=== PATIENT | female | born 1975 | race Caucasian/White ===

== ENCOUNTER → 2017-08-23 | Outpatient (CLI) | payer OTHER ==
[~2017-08-23] MED LIST: CHANTIX1 EACH PO; CYMBALTA20 MG PO; HYDROCODONE-AP1 EAC6 PO; LEXAPRO20 MG PO; MEDROLDOSEPACK PO; ROBAXIN 750 MG750 M1 PO; ULTRAM 50MG TAB50 MG PO; VICODIN 5-5001 EACH PO; XANAX 0.25 MG0.25 MG PO
== END ==
LOC: M.WC 00:03
DX: T81.4XXA Infection following a procedure, initial encounter (principal); F17.210 Nicotine dependence, cigarettes, uncomplicated; Y83.8 Other surgical procedures as the cause of abnormal reaction of the patient, or of later complication, without mention of misadventure at the time of the procedure

== ENCOUNTER → 2017-09-13 | Outpatient (CLI) | payer OTHER | LOC: M.WC 08:00 | DX: T81.4XXD Infection following a procedure, subsequent encounter (principal); F17.200 Nicotine dependence, unspecified, uncomplicated; Y83.8 Other surgical procedures as the cause of abnormal reaction of the patient, or of later complication, without mention of misadventure at the time of the procedure ==

== ENCOUNTER 2017-11-17 18:41 | Emergency (ER) | payer OTHER ==
[~2017-11-17] VITALS: Ht 167.6 cm; Wt 86.2 kg
[~2017-11-17 18:41] MED LIST changes: -CYMBALTA20 MG PO; -HYDROCODONE-AP1 EAC6 PO; -MEDROLDOSEPACK PO; -ROBAXIN 750 MG750 M1 PO
[2017-11-17] MEDS ORDERED: CYMBALTA20 MG PO (19:08)
[2017-11-17] MEDS ORDERED: MEDROLDOSEPACK PO ×2 (20:15→20:36)
[2017-11-17] MEDS ORDERED: ROBAXIN 750 MG750 M1 PO ×2 (20:15→20:36)
[2017-11-17] MEDS ORDERED: HYDROCODONE-AP1 EAC6 PO ×2 (20:15→20:36)
[2017-11-17 20:46] VITALS: BP 142/88
== END 2017-11-17 20:46 | disposition home or self-care (01) ==
LOC: M.ERS 18:41
DX: M54.2 Cervicalgia (principal); M54.5 Low back pain; Z88.8 Allergy status to other drugs, medicaments and biological substances

== ENCOUNTER → 2018-01-11 | Outpatient (CLI) | payer OTHER ==
[~2018-01-11] MED LIST changes: +CYMBALTA20 MG PO; +HYDROCODONE-AP1 EAC6 PO; +MEDROLDOSEPACK PO; +ROBAXIN 750 MG750 M1 PO
== END ==
LOC: M.RAD 14:23
DX: M48.07 Spinal stenosis, lumbosacral region (principal); M54.42 Lumbago with sciatica, left side; M54.41 Lumbago with sciatica, right side; G89.29 Other chronic pain

== ENCOUNTER → 2018-01-12 | Outpatient (CLI) | payer OTHER | LOC: M.MRI 09:14 | DX: Z12.31 Encounter for screening mammogram for malignant neoplasm of breast (principal); M54.41 Lumbago with sciatica, right side; M54.42 Lumbago with sciatica, left side; G89.29 Other chronic pain ==

== ENCOUNTER → 2018-01-31 | Outpatient (CLI) | payer OTHER | LOC: M.WC 07:51 | DX: T81.4XXA Infection following a procedure, initial encounter (principal); F17.200 Nicotine dependence, unspecified, uncomplicated; Y83.8 Other surgical procedures as the cause of abnormal reaction of the patient, or of later complication, without mention of misadventure at the time of the procedure ==

== ENCOUNTER → 2018-02-06 | Outpatient (CLI) | payer OTHER ==
--- NOTE | 2018-02-07 07:30 | CON ---
[address] [address] CONSULTATION Name: SHEILA ELAM Room: [facility].#: [id number] Admission: 02/06/18 Attend Phys: Felipe Guzman MD Discharge: Date of : 71 Report #: [id number] THIS REPORT FOR: //name// CC: Heron Guzman DATE OF SERVICE: 02/06/2018 This was a request from Dr. Guerrero at the wound care center. Patient of Dr. Woodward. REASON FOR EVALUATION: Evaluation of possible deep infection associated with the lumbar spine site of previous surgeries. HISTORY OF PRESENT ILLNESS: The patient is seen today. She had been seen last week by Dr. Guerrero. She had an area that started in early part of January, in the incisional scar developed a bullous type lesion. This was drained, was felt to have a superficial infection and was placed on antibiotics consisting of doxycycline. It is notable that she has been on those on and off for the last 9 months because of a surgical site infection. She was seen by Dr. Guerrero who felt there was additional fluid. He did open it up and again had some purulent material. Culture was collected with isolation of Staphylococcus epidermidis is notable. She had rifampin, and it was in vitro resistant to both the tetracycline as well as rifampin. The wound was subsequently closed. She denies more than usual amount of pain. She has not been systemically ill. No fevers or chills. Appetite has been satisfactory. No pulmonary-related complaints. ALLERGIES: PENICILLIN. MEDICATIONS: Excedrin, Tylenol, tramadol, rifampin, oxycodone, duloxetine, doxycycline. PAST MEDICAL HISTORY: Notable for lumbar chronic pain, disk disease and previous surgery. SOCIAL HISTORY: Smokes cigarettes a pack a day. FAMILY HISTORY: Noncontributory. REVIEW OF SYSTEMS: As above. PHYSICAL EXAMINATION: GENERAL: She is pleasant, alert, cooperative. She has mild distress secondary to back pain, although she is [place] [address] CONSULTATION Name: SHEILA ELAM Room: [facility]#: [id number] Admission: 02/06/18 Attend Phys: Felipe Guzman MD Discharge: Date of : 71 Report #: [id number] VITAL SIGNS: Stable. HEENT: Unremarkable. LUNGS: Breathing is unlabored. MUSCULOSKELETAL: Back was evaluated. There is really minimal if any surface inflammation at this point and is palpably mildly tender. There is no evidence of fluctuance or bullous lesions over the site nor in the immediate area. ASSESSMENT AND PLAN: Chronic back pain surgeries, historically compromised by surgical site infection. At this point, I do not see any clinical evidence of infection. It is notable that she has been on antibiotics, although they have been least based on the culture results, unlikely to have been beneficial due to the in vitro resistance. She was instructed to discontinue those. We had a lengthy conversation. Two options I think are watchful waiting, if there is a deep infection, it certainly will declare itself, manifested as localizing or perhaps systemic illness. A second option would be to give him treatment based on the cultures, although it is difficult to ascertain what the endpoint is and how long she would treat. At any point would not know until after we discontinue the antibiotics. Certainly, you could repeat imaging, although I suspect some degree of abnormality. She opted for the first choice. She was instructed to call if problems. We will take action at that point. <ELECTRONICALLY SIGNED> By: Felipe Guzman MD 02/07/18 0730 [id number] Guzman MD /nt
== END ==
LOC: M.WC 01:20
DX: T81.4XXD Infection following a procedure, subsequent encounter (principal); F17.210 Nicotine dependence, cigarettes, uncomplicated; Y83.8 Other surgical procedures as the cause of abnormal reaction of the patient, or of later complication, without mention of misadventure at the time of the procedure